=== PATIENT | female | born 1955 | race Caucasian/White ===

== ENCOUNTER 2022-08-07 06:20 | Day surgery (SDC) | payer OTHER ==
[~2022-08-07] VITALS: Ht 160 cm; Wt 87.1 kg
[~2022-08-07 06:20] MED LIST: COZAAR100 MG; LEVOTHYROXINE50 MC1; LOPRESSOR25 MG; NAPROXEN SODIU550 MG PO; ORTHO DF 3,7751 EACH
[2022-08-07] MEDS ORDERED: IBU600 MG PO (09:01)
== END 2022-08-07 12:55 | disposition home or self-care (01) ==
LOC: EDBD → CIR.AMB 06:20
PROVIDERS: ATTEND Obstetrics & Gynecology Gynecology
DX: N84.0 Polyp of corpus uteri (principal); N72 Inflammatory disease of cervix uteri; I10 Essential (primary) hypertension; E03.9 Hypothyroidism, unspecified; E11.9 Type 2 diabetes mellitus without complications; Z88.0 Allergy status to penicillin; Z86.16 Personal history of COVID-19

== ENCOUNTER 2023-08-01 10:34 | Inpatient (IN) | payer OTHER ==
[~2023-08-01] VITALS: Ht 152.4 cm; Wt 89.8 kg
[~2023-08-01 10:34] MED LIST changes: +IBU600 MG PO
[2023-08-06 19:41] LABS: HEMATOCRIT 35.6 % (36.0-45.00); HEMOGLOBIN 11.1 g/dL (12.0-15.00); MEAN CELL VOLUME 82.4 fL (80.00-100.00); MEAN CORPUSCULAR HEMOGLOBIN 25.8 pg (27.00-32.0); MEAN CORPUSCULAR HGB CONC 31.3 g/dl (32.0-36.0); PLATELET COUNT 395 K/uL (150-450); RED BLOOD COUNT 4.32 M/uL (4.00-6.00)
== END 2023-08-07 10:58 | disposition home or self-care (01) | DRG 743 ==
LOC: ADM 10:45 → EDSTATUS 10:45 → O/R 08-06 05:10 → OB/GYN 08-06 05:10
PROVIDERS: ADMIT Obstetrics & Gynecology Gynecology; ATTEND Obstetrics & Gynecology Gynecology
PROC: 0UT74ZZ Resection of Bilateral Fallopian Tubes, Percutaneous Endoscopic Approach (ICD-10-PCS; 2023-08-06)
PROC: 0UT94ZZ Resection of Uterus, Percutaneous Endoscopic Approach (ICD-10-PCS; principal; 2023-08-06 13:15)
DX: N80.03 Adenomyosis of the uterus (principal); N84.0 Polyp of corpus uteri; Z20.822 Contact with and (suspected) exposure to COVID-19